=== PATIENT | female | born 1950 | race Caucasian/White ===

== ENCOUNTER 2019-12-26 01:08 | Outpatient (CLI) | payer BC, SELFPAY ==
[2019-12-26 19:24] LABS: SARS-CoV-2 RNA PCR Negative
== END 2019-12-26 01:09 | disposition home or self-care (01) ==
LOC: ANHCOVIDDT 01:09
PROVIDERS: PCP Physician Assistant; Visit Provider Internal Medicine Gastroenterology
DX: Z01.812 Encounter for preprocedural laboratory examination (principal); Z11.59 Encounter for screening for other viral diseases
CPT/HCPCS: 87635; C9803; U0003

== ENCOUNTER 2019-12-28 01:46 | Day surgery (SDC) | payer BC, SELFPAY ==
[2019-12-25 12:09] VITALS: BMI 29.2
--- NOTE | 2019-12-28 09:14 | WPDANESEPPF ---
Anes - Initial Pre Proc Eval Procedure: Operation Date: 12/28/19 10:30 Proposed Procedures p Esophagogastroduodenoscopy - Tanmay Brar MD Date/Time: 12/28/19 09:14 Surgeon: Tanmay Brar MD Pre Op Diagnosis: Dysphagia Patient Data Age: 69 Gender: F Height: 5 ft 3 in Weight: 75 kg Allergies Allergy/AdvReac Type Severity Reaction Status Date / Time monosodium glutamate Allergy Mild Headache Verified 12/28/19 09:13 Home Medications Medication Instructions Recorded Confirmed Type calcium carbonate-vitamin D3 1 tablet PO DAILY 12/25/19 12/25/19 History [Calcium 500 + D] clopidogrel [Plavix] 75 mg PO DAILY 12/25/19 12/25/19 History famotidine [Pepcid] 20 mg PO DAILY 12/25/19 12/25/19 History mv,Ca,min-folic acid-vit K1 1 tablet PO DAILY 12/25/19 12/25/19 History [One-A-Day Women's 50 Plus] rosuvastatin [Crestor] 40 mg PO DAILY 12/25/19 12/25/19 History Patient hx anesthesia problems: none Family hx anesthesia problems: none PMFSH Past Medical History Medical History CVA (cerebral vascular accident) GERD (gastroesophageal reflux disease) Hx of migraines Hyperlipidemia Family History Family History Father Cerebrovascular accident Social History Social History Smoking status: Former smoker Smoking end date: 06/07/98 Alcohol intake: current Anes - Eval Final PreProcedure Day of Procedure 12/28/19 09:14 Patient weight: overweight Heart: regular rate and rhythm Lungs: decreased breath sounds Airway: Mallampati scale class II Neurological: alert and oriented Last oral intake: >/= 8 hours ASA classification: III Emergent: no Anesthetic plan: proceed Anesthesia type and monitoring: general GIVS and standard monitoring Informed Consent: The patient's anesthetic plan and its attendant risks and benefits were discussed with the patient/family/POA. Questions were solicited and answers provided to the satisfaction of the patient/family/POA.
[2019-12-28 09:20] VITALS: BP 136/78; PULSE 79; RESP 16; TEMP 37.1; O2SAT 99
[2019-12-28] MEDS: LACTATED RINGERS 1,000 ML 150 ML IV CONT (09:44)
--- NOTE | 2019-12-28 10:15 | P.HP_ITS ---
History of Present Illness History of Present Illness Consent: Risks, benefits, and alternatives have been discussed and questions answered. Patient agrees to proceed with procedure. Chief complaint: Dysphagia Narrative: Demi Keller is a 69 year old W female referred for gastroscopy and possible esophageal dilatation secondary recurrent dysphagia. Patient has a known history of a Schatzki's ring. Last gastroscopy was year and half ago. Patient also history of gastroesophageal reflux disease is on Pepcid and not sure why she has stopped her PPI in the past. Patient had been on pantoprazole 40 mg daily. Patient also on Plavix secondary to previous CVA. She stop this several days ago. I discussed the increased risk of bleeding with dilatation. [facility], LAT[facility] Past Medical History Medical History CVA (cerebral vascular accident) GERD (gastroesophageal reflux disease) Hx of migraines Hyperlipidemia Family History Family History Father Cerebrovascular accident Social History Social History Smoking status: Former smoker Smoking end date: 06/07/98 Alcohol intake: current Meds Home Medications and Allergies Home Medications Medication Instructions Recorded Confirmed Type calcium carbonate-vitamin D3 1 tablet PO DAILY 12/25/19 12/28/19 History [Calcium 500 + D] clopidogrel [Plavix] 75 mg PO DAILY 12/25/19 12/28/19 History famotidine [Pepcid] 20 mg PO DAILY 12/25/19 12/28/19 History mv,Ca,min-folic acid-vit K1 1 tablet PO DAILY 12/25/19 12/28/19 History [One-A-Day Women's 50 Plus] rosuvastatin [Crestor] 40 mg PO DAILY 12/25/19 12/28/19 History Allergies Allergy/AdvReac Type Severity Reaction Status Date / Time monosodium glutamate Allergy Mild Headache Verified 12/28/19 09:21 Vital Signs Vital Signs - 24 hr 12/28/19 09:20 Temperature 37.1 C Pulse Rate 79 Respiratory Rate 16 Blood Pressure 136/78 Pulse Oximetry 99 Exam Const: Orientation/consciousness: patient oriented x3 Resp: Auscultation: clear to auscultation bilaterally Cardio: Rate: regular rate Rhythm: regular rhythm Heart sounds: no murmurs GI: GI Palp: Yes Soft to palpation, No Tenderness to palpation present (GI), Yes No hepatosplenomegaly present and No Palpable mass present Auscultation: normal bowel sounds Neuro: General: patient oriented x3 and no focal motor deficits Extrem: General: no pedal edema Assessment and Plan Additional Plan EGD with possible esophageal dilatation for evaluation of dysphagia
[2019-12-28 10:37] VITALS: BP 92/60; PULSE 80; RESP 20; O2SAT 99
[2019-12-28 10:47] VITALS: BP 98/54; PULSE 70; RESP 20; O2SAT 98
[2019-12-28 10:57] VITALS: BP 109/63; PULSE 62; RESP 18; O2SAT 98
== END 2019-12-28 11:16 | disposition home or self-care (01) ==
PROVIDERS: PCP Physician Assistant; Visit Provider Internal Medicine Gastroenterology
PROC: 0DJ08ZZ Inspection of Upper Intestinal Tract, Via Natural or Artificial Opening Endoscopic (ICD-10-PCS; CPT 43235; principal; 2019-12-28 10:30)
DX: K22.2 Esophageal obstruction (principal); K21.0 Gastro-esophageal reflux disease with esophagitis; K44.9 Diaphragmatic hernia without obstruction or gangrene; E78.5 Hyperlipidemia, unspecified; K21.9 Gastro-esophageal reflux disease without esophagitis; Z86.73 Personal history of transient ischemic attack (TIA), and cerebral infarction without residual deficits; Z87.891 Personal history of nicotine dependence; Z79.02 Long term (current) use of antithrombotics/antiplatelets
CPT/HCPCS: 43249; 88305; C1726; J2704; J7120

== ENCOUNTER 2023-03-13 23:24 | Emergency (ER) | payer MEDICARE, SELFPAY ==
--- NOTE | ~2023-03-13 | XR_ITS ---
XR chest 1V portable DATE: 03/13/2023 23:46 INDICATION: Shortness of breath. Covid. TECHNIQUE: Portable AP chest on 03/13/2023 at 2343 hours COMPARISON: 04/12/2016 2 view chest FINDINGS: Borderline heart size. No hilar or mediastinal enlargement. No pulmonary infiltrate or cons olidation, pleural effusion or pulmonary vascular congestion or pneumothorax. Diffuse osteopenia. IMPRESSION: No active pulmonary disease Osteopenia Reviewed, dictated and finalized at location A.
[2023-03-13 23:28] VITALS: BP 122/99; PULSE 83; RESP 16; TEMP 37.7; O2SAT 99
[2023-03-13 23:40] VITALS: BP 148/82; PULSE 89; RESP 17; TEMP 37.6; O2SAT 97
[2023-03-13 23:41] VITALS: O2SAT 97
--- NOTE | 2023-03-13 23:48 | ED.GENADULT ---
HPI - General Adult General Chief complaint: Upper Respiratory Infection Stated complaint: Throat swelling, trouble swallowing, covid + Time Seen by Provider: 03/13/23 23:34 History of Present Illness HPI narrative: 72-year-old female with recent COVID diagnosis presented the ED for evaluation of a sore throat. Patient states that her grandson was diagnosed with strep and patient is concerned that she has strep throat. Patient does report increased pain with swallowing. Related Data Home Medications Medication Instructions Recorded Confirmed calcium carbonate 500 mg-vitamin 1 tablet PO DAILY 12/25/19 12/28/19 D3 5 mcg (200 unit) tablet (Calcium 500 + D) clopidogrel 75 mg tablet (Plavix) 75 mg PO DAILY 12/25/19 12/28/19 bnlazicmnqsu-entyzdla-lzjqdkp-folic 1 tablet PO DAILY 12/25/19 12/28/19 acid 400 mcg-vit K1 20 mcg tablet (One-A-Day Women's 50 Plus) rosuvastatin 20 mg tablet (Crestor) 40 mg PO DAILY 12/25/19 12/28/19 Allergies Allergy/AdvReac Type Severity Reaction Status Date / Time monosodium glutamate Allergy Mild Headache Verified 12/28/19 09:21 Review of Systems Review of Systems: All systems reviewed & are unremarkable except as noted in HPI and below PMFSH Past Medical History Medical History (Updated 03/14/23 @ 00:26 by Allen Mendoza MD) CVA (cerebral vascular accident) GERD (gastroesophageal reflux disease) Hx of migraines Hyperlipidemia Family History Family History Father Cerebrovascular accident Social History Social History Smoking status: Former smoker Smoking end date: 06/07/98 Alcohol intake: current Exam Narrative: APPEARANCE: Well appearing, no pain, no distress, well-nourished. HEAD: normocephalic, atraumatic. EYES: PERRLA/EOMI, conjunctivae clear. NOSE: Normal no drainage EARS:TMS clear with good light reflex. THROAT: Normal posterior pharynx NECK: Supple. No adenopathy, no masses. RESPIRATORY: Airway patent, respirations nonlabored. Clear to auscultation bilaterally, no rales, rhonchi, wheezing. CARDIOVASCULAR: Regular rate and rhythm without murmurs rubs or gallops. ABDOMINAL: Soft, nontender, nondistended, normal bowel sounds MUSCULOSKELETAL: Moves all extremities. Strength/ROM intact, No edema, No calf tenderness. NEURO: Alert. Cranial nerves II through XII intact. Grossly intact SKIN: Warm, dry. Normal Color Course Course Emergency Course: 72-year-old female presented to ED for evaluation of sore throat. Patient is tolerating p.o. and handling her own secretions. Patient did feel improved with treatment. Chest x-ray shows no acute cardiopulmonary malady. Patient was positive for COVID and patient strep was negative. Patient was updated on the symptomatic treatment for home and was updated on reasons to return to the emergency department. All questions and concerns were addressed and patient was well-appearing at time of discharge Vital Signs Vital signs: Vital Signs Temperature 100 F H 03/13/23 23:28 Pulse Rate 83 03/13/23 23:28 Respiratory Rate 16 03/13/23 23:28 Blood Pressure 122/99 H 03/13/23 23:28 Pulse Oximetry 99 03/13/23 23:28 Oxygen Delivery Room Air 03/13/23 23:28 Temperature 99.7 F H 03/13/23 23:40 Pulse Rate 76 03/14/23 00:46 Respiratory Rate 15 03/14/23 00:46 Blood Pressure 130/77 03/14/23 00:46 Pulse Oximetry 94 03/14/23 00:46 Oxygen Delivery Room Air 03/13/23 23:41 Medical Decision Making Vital Signs Vital Signs: Vital Signs Temperature 100 F H 03/13/23 23:28 Pulse Rate 83 03/13/23 23:28 Respiratory Rate 16 03/13/23 23:28 Blood Pressure 122/99 H 03/13/23 23:28 Pulse Oximetry 99 03/13/23 23:28 Oxygen Delivery Room Air 03/13/23 23:28 Temperature 99.7 F H 03/13/23 23:40 Pulse Rate 76 03/14/23 00:46 Respiratory Rate 1
[2023-03-14] MEDS: BELLADONNA ALK/PHENOB ELIX 10 ML, MAG HYDROX/ALUMINUM HYD/SIMETH 30 ML, LIDOCAINE HCL 2... PO (00:13)
[2023-03-14 00:20] LABS: Strep Group A RT-PCR NOT DETECTED (Negative)
[2023-03-14 00:30] LABS: Influenza A QL RT-PCR Negative (Negative); Influenza B QL RT-PCR Negative (Negative); RSV RNA, RT-PCR Negative (Negative); SARS-CoV-2 RNA PCR Positive (Negative)
[2023-03-14] MEDS: HYDROcodone/acetaminophen (*CRX) 5-325 MG TABLET 1 TAB PO (00:32)
[2023-03-14 00:46] VITALS: BP 130/77; PULSE 76; RESP 15; O2SAT 94
== END 2023-03-14 00:52 | disposition home or self-care (01) ==
PROVIDERS: Emergency Provider Emergency Medicine; PCP Physician Assistant
DX: U07.1 COVID-19 (principal); J02.9 Acute pharyngitis, unspecified; E78.5 Hyperlipidemia, unspecified; K21.9 Gastro-esophageal reflux disease without esophagitis; Z86.73 Personal history of transient ischemic attack (TIA), and cerebral infarction without residual deficits; Z87.891 Personal history of nicotine dependence
CPT/HCPCS: 71045; 87637; 87651; 96372; 99283; A9270; J1100